=== PATIENT | female | born 1955 | race Caucasian/White ===

== ENCOUNTER → 2017-01-22 | Outpatient (CLI) | payer OTHER ==
[~2017-01-22] MED LIST: ALBUTEROL 0.5ML INH; ALBUTEROL17 GM INH; AMBIEN PO; AMITRYPTYLINE PO; ANTIBIOTIC; BENICAR PO; CELEXA PO; CLARITIN10 MG PO; CLEOCIN PO; EC-NAPROSYN500 MG PO; IBUPROFEN PO; LOPRESSOR PO; MIRAPEX PO; NEURONTIN PO; NEXIUM PO; ORUDIS75 M1 PO; PERCOCET PO; PRAVACHOL PO; PREDNISONE PO; REGLAN PO; REQUIP1 MG; REQUIP1 MG PO; VICODIN 5/500 T1 TAB PO; ZEGERID40 MG/PKT PO; ZITHROMAX PO; ZOCOR PO
--- NOTE | ~2017-01-22 | MY29 ---
[facility] A Service [facility] RADIOLOGY TEXT RESULTS PATIENT: DELIA SWAIN LOCATION: [facility] : 59 UNIT #: [id number] AGE: [address]: Ventura De Jesus MD SEX: F ORDER DR: [id number] [facility] [address] [place], [place] [address] [id number] O MR#: [id number] Acc #: [id number] NAME: DELIA SWAIN : 1955 SEX: F STUDY DATE/TIME: 01/22/2017 12:30 UNIT: [facility] ROOM: STUDY DESCRIPTION: MY ELIZABETH SCREENING W/ CAD BILAT Attending Physician: Ventura De Jesus Jr., M.D. Ordering Physician: Ventura De Jesus Jr., M.D. Primary Care Physician: Ventura De Jesus Jr., M.D. MEDICAL IMAGING REPORT This report is preliminary unless electronic signature is present EXAM Digital screening mammogram 01/22/2017 HISTORY 61-year-old woman positive family history, sister premenopausal. Annual screen. COMPARISON Mammograms date to 12/11/2009 with most recent 01/11/2016. FINDINGS Digital imaging of each breast was completed utilizing a two-view examination of each breast in craniocaudal and mediolateral-oblique projections. Review and interpretation of digital mammograms include a second review in conjunction with FDA-approved CAD device. There is a normal parenchymal presentation bilaterally consistent with the patient's age. There are no breast masses imaged and no parenchymal asymmetry is visualized. There are no suspicious microcalcifications and I see no focal architectural disturbance. IMPRESSION Negative screening digital mammogram. One-year followup recommended. Patients over the age of 40 are entered into a reminder system with target due date for the next mammogram. A result letter will also be sent to the patient. BIRADS: 1 Negative Dictated by... Chavez Kenny M.D. [facility] A Service [facility] RADIOLOGY TEXT RESULTS PATIENT: DELIA SWAIN LOCATION: [facility] : 59 UNIT #: [id number] AGE: [address]: Ventura De Jesus MD SEX: F ORDER DR: THIS IS AN ELECTRONICALLY VERIFIED REPORT Chavez Kenny M.D. at 01/23/2017 8:05 AM Dorys TD: 01/22/2017 18:24 JOB #: [id number] MEDICAL IMAGING REPORT Page 1 of 1 COPY
== END | disposition home or self-care (01) ==
LOC: CWCC 12:01
DX: Z12.31 Encounter for screening mammogram for malignant neoplasm of breast (principal); Z80.3 Family history of malignant neoplasm of breast
CPT/HCPCS: G0202